=== PATIENT | female | born 1940 | race Caucasian/White ===

== ENCOUNTER 2017-11-23 04:53 | Emergency (ER) | payer MEDICARE, OTHER ==
--- NOTE | 2017-11-23 05:30 | EDM.PDOC ---
ED HPI GENERAL MEDICAL PROBLEM - General Chief Complaint: General Stated Complaint: hypotension,fall Time Seen by Provider: 11/23/17 05:10 Source of Information: Reports: Patient, EMS Notes Reviewed, Family, RN, RN Notes Reviewed History Limitations: Reports: No Limitations - History of Present Illness INITIAL COMMENTS - FREE TEXT/NARRATIVE: Patient is brought to emergency room at [facility] via ambulance after she was found by her laying on the floor next to the bed. The patient states when she got up to go to the bathroom she wanted to sit on the edge of the bed. The patient states that as she was sitting down, she misjudged the edge of bed and slid down to the floor. The patient denies any head injury or trauma. The patient denies any chest pain. The patient denies any shortness of breath or cough. The patient denies any abdominal pain. The patient denies any nausea vomiting or diarrhea. The patient denies any dizziness. The patient states she remembers the entire incident. The patient is not sure why she slipped to the floor. The patient denies any leg weakness. Upon ambulance arrival, the patient apparently had a blood pressure in the 60s. The ambulance crew did not do any intervention for the blood pressure in the 60s. They felt that the patient was asymptomatic and they were unable to get an IV started. The patient denies any blood in stool. The patient denies any UTI symptoms. The patient states "I think I'm drinking enough water." The patient does not have any past medical history. The patient denies taking any prescription medications on a daily basis. The patient has not been seen by her primary care provider in many years. - Related Data Allergies Allergy/AdvReac Type Severity Reaction Status Date / Time No Known Allergies Allergy Verified 11/23/17 05:26 Home Meds: Home Meds . [No Known Home Meds] 11/23/17 [History] Past Medical History - Past Health History Medical/Surgical History: Denies Medical/Surgical History Social & Family History - Family History Family Medical History: Noncontributory - Tobacco Use Smoking Status *Q: Current Every Day Smoker Tobacco Use Within Last Twelve Months: Cigarettes - Alcohol Use Alcohol Use History: No Alcohol Use in Last Twelve Months: No - Living Situation & Occupation Living situation: Reports: , with Spouse Occupation: Retired ED ROS GENERAL - Review of Systems Review Of Systems: ROS reveals no pertinent complaints other than HPI. ED EXAM, GENERAL - Physical Exam Exam: See Below Exam Limited By: No Limitations General Appearance: Alert, No Apparent Distress Eye Exam: Bilateral Eye: Normal Inspection, PERRL Head: Atraumatic, Normocephalic Neck: Supple Respiratory/Chest: No Respiratory Distress, Lungs Clear, Normal Breath Sounds Cardiovascular: Normal Peripheral Pulses, Regular Rate, Rhythm Peripheral Pulses: 1+: Radial (L), Radial (R) GI/Abdominal: Normal Bowel Sounds, Soft, Non-Tender Neurological: Alert, Oriented Skin Exam: Warm, Dry, Intact, Normal Color, No Rash EKG INTERPRETATION EKG Date: 11/23/17 Time: 06:11 Rhythm: NSR Rate (Beats/Min): 80 [place]: Normal P-Wave: Present QRS: Normal ST-T: Normal QT: Normal CO/PQ Interval: 0.14 Comparison: NA - No Prior EKG EKG Interpretation Comments: Sinus Rhythm with occasional SV premature complexes Nonspecific ST & T-wave abnormality Course - Vital Signs Last Recorded V/S: Last Vital Signs Temp 35.7 C 11/23/17 05:22 Pulse 96 11/23/17 07:44 Resp 18 11/23/17 07:44 BP 105/75 11/23/17 08:28 Pulse Ox 96 11/23/17 08:28 Orthostatic Blood Pressure [ 76/51 Standing] Orthostatic Blood Pressure [ 90/54 Supine] - Orders/Labs/Meds Orders: Active Orders 24 hr Category Date Time Status EKG 12 Lead [EKG Documentation Completion] [RC] STAT Care 11/23/17 05:43 Active Orthostatic Vital Signs [RC] ASDIRECTED Care 11/23/17 06:01 Active Oxygen Therapy, ED [RC] ASDIRECTED Care 11/23/17 07:40 Active Chest 1V Frontal [CR] Stat Exams 11/23/17 06:14 Taken Head wo Cont [CT] Stat Exams 11/23/17 07:18 Taken CULTURE BLOOD [BC] Stat Lab 11/23/17 07:06 Results CULTURE BLOOD [BC] Stat Lab 11/23/17 07:12 Results UA W/MICROSCOPIC [URIN] Stat Lab 11/23/17 05:42 Ordered Piperacillin/Tazobactam [Zosyn] 4.5 gm Med 11/23/17 08:37 Active Sodium Chloride 0.9% [Normal Saline] 100 ml IV ONETIME Sodium Chloride 0.9% [Saline Flush] Med 11/23/17 05:37 Active 10 ml FLUSH ASDIRECTED PRN Blood Culture x2 Reflex Set [OM.PC] Stat Oth 11/23/17 06:13 Ordered Peripheral IV Insertion Adult [OM.PC] Routine Oth 11/23/17 05:37 Ordered Medication Orders Piperacillin Sod/Tazobactam (Sod 4.5 gm/ Sodium Chloride) 100 mls @ 200 mls/hr IV ONETIME ONE Stop: 11/23/17 09:06 Sodium Chloride (Saline Flush) 10 ml FLUSH ASDIRECTED PRN PRN Reason: Keep Vein Open Labs: Laboratory Tests 11/23/17 11/23/17 11/23/17 Range/Units 05:11 05:11 05:11 WBC 19.1 H (4.0-10.0) x10^3/uL RBC 3.90 L (4.00-5.50) x10^6/uL Hgb 11.6 L (12.0-16.0) g/dL Hct 37.8 (33.0-47.0) % MCV 96.9 H (78.0-93.0) fL MCH 29.7 (26.0-32.0) pg MCHC 30.7 L (32.0-36.0) g/dL RDW Coeff of Dex 15.3 H (10.0-15.0) % Plt Count 224 (130-400) x10^3/uL Add Manual Diff Yes Neutrophils % (Manual) 78 (50-80) % Band Neutrophils % 7 H (0-6) % Lymphocytes % (Manual) 9 L (25-50) % Monocytes % (Manual) 4 (2-11) % Eosinophils % (Manual) 1 (0-4) % Basophils % (Manual) 1 (0-1) % Vacuolated Monocytes Rare Toxic Granulation 1+ slight H Platelet Estimate Adequate Anisocytosis 1+ slight H Macrocytosis 1+ slight H Ovalocytes Rare Sodium 142 (136-145) mmol/L Potassium 3.9 (3.5-5.1) mmol/L Chloride 105 (98-107) mmol/L Carbon Dioxide 24 (21-32) mmol/L BUN 31 H (7-18) mg/dL Creatinine 1.9 H (0.55-1.02) mg/dL Est Cr Clr Drug Dosing TNP Estimated GFR (MDRD) 26 Glucose 253 H (74-106) mg/dL Lactic Acid (0.4-2.0) mmol/L Calcium 9.1 (8.5-10.1) mg/dL Corrected Calcium 9.98 (8.5-10.1) mg/dL Total Bilirubin 0.5 (0.2-1.0) mg/dL AST 70 H (15-37) U/L ALT 45 (14-59) U/L Alkaline Phosphatase 83 (46-116) U/L Creatine Kinase 244 H* (26-192) U/L Troponin I 1.434 H* (<=0.056) ng/mL C-Reactive Protein 3.0 H (<=0.9) mg/dL Total Protein 6.8 (6.4-8.2) g/dL Albumin 2.9 L (3.4-5.0) g/dL Globulin 3.9 Albumin/Globulin Ratio 0.74 /18 Range/Units 05:11 WBC (4.0-10.0) x10^3/uL RBC (4.00-5.50) x10^6/uL Hgb (12.0-16.0) g/dL Hct (33.0-47.0) % MCV (78.0-93.0) fL MCH (26.0-32.0) pg MCHC (32.0-36.0) g/dL RDW Coeff of Dex (10.0-15.0) % Plt Count (130-400) x10^3/uL Add Manual Diff Neutrophils % (Manual) (50-80) % Band Neutrophils % (0-6) % Lymphocytes % (Manual) (25-50) % Monocytes % (Manual) (2-11) % Eosinophils % (Manual) (0-4) % Basophils % (Manual) (0-1) % Vacuolated Monocytes Toxic Granulation Platelet Estimate Anisocytosis Macrocytosis Ovalocytes Sodium (136-145) mmol/L Potassium (3.5-5.1) mmol/L Chloride (98-107) mmol/L Carbon Dioxide (21-32) mmol/L BUN (7-18) mg/dL Creatinine (0.55-1.02) mg/dL Est Cr Clr Drug Dosing Estimated GFR (MDRD) Glucose (74-106) mg/dL Lactic Acid 7.8 H* (0.4-2.0) mmol/L Calcium (8.5-10.1) mg/dL Corrected Calcium (8.5-10.1) mg/dL Total Bilirubin (0.2-1.0) mg/dL AST (15-37) U/L ALT (14-59) U/L Alkaline Phosphatase (46-116) U/L Creatine Kinase (26-192) U/L Troponin I (<=0.056) ng/mL C-Reactive Protein (<=0.9) mg/dL Total Protein (6.4-8.2) g/dL Albumin (3.4-5.0) g/dL Globulin Albumin/Globulin Ratio Meds: Medications Generic Name Dose Route Start Last Admin Trade Name Freq PRN Reason Stop Dose Admin Piperacillin Sod/Tazobactam 100 mls @ 200 mls/hr 11/23/17 08:37 Sod 4.5 gm/ Sodium Chloride IV 11/23/17 09:06 ONETIME ONE Sodium Chloride 10 ml 11/23/17 05:37 Saline Flush FLUSH ASDIRECTED PRN Keep Vein Open Discontinued Medications Generic Name Dose Route Start Last Admin Trade Name Freq PRN Reason Stop Dose Admin Sodium Chloride 1,000 mls @ 999 mls/hr 11/23/17 05:39 11/23/17 05:50 Normal Saline IV 11/23/17 06:39 999 mls/hr ONETIME ONE Administration - Radiology Interpretation Free Text/Narrative:: CXR: Negative CXR for acute cardiopulmonary process - see scanned report in EMR Departure - Departure Time of Disposition: 08:44 Disposition: DC/Tfer to [facility] 02 Condition: Fair Clinical Impression: Sepsis associated hypotension Hypotension Qualifiers: Hypotension type: unspecified hypotension type Qualified Code(s): I95.9 - Hypotension, unspecified - Discharge Information Forms: Interfacility Transfer [facility] ED Communication - ED Communication Date/Time Date: 11/23/17 Time Called: 08:20 - Discussed Case With (1) Discussed Case With (1): Admitting Provider (Dr. James, Hospitalist, Dr. Stinson, Director Drug. Report given. Patient accepted in transfer. Patient will be sent via ALS ground.) - Conversation Summary Admitting Provider Agreed to Patient's Admission: Yes Patient Aware of Amendments fo Care Plan: Yes - Problem List Review Problem List Initiated/Reviewed/Updated: Yes - My Orders Last 24 Hours: My Active Orders 11/23/17 05:37 Sodium Chloride 0.9% [Saline Flush] 10 ml FLUSH ASDIRECTED PRN Peripheral IV Insertion Adult [OM.PC] Routine 11/23/17 05:42 UA W/MICROSCOPIC [URIN] Stat 11/23/17 05:43 EKG 12 Lead [EKG Documentation Completion] [RC] STAT 11/23/17 06:01 Orthostatic Vital Signs [RC] ASDIRECTED 11/23/17 06:13 Blood Culture x2 Reflex Set [OM.PC] Stat 11/23/17 06:14 Chest 1V Frontal [CR] Stat 11/23/17 07:06 CULTURE BLOOD [BC] Stat 11/23/17 07:12 CULTURE BLOOD [BC] Stat 11/23/17 07:18 Head wo Cont [CT] Stat 11/23/17 07:40 Oxygen Therapy, ED [RC] ASDIRECTED 11/23/17 08:37 Piperacillin/Tazobactam [Zosyn] 4.5 gm Sodium Chloride 0.9% [Normal Saline] 100 ml IV ONETIME - Assessment/Plan Last 24 Hours: My Active Orders 11/23/17 05:37 Sodium Chloride 0.9% [Saline Flush] 10 ml FLUSH ASDIRECTED PRN Peripheral IV Insertion Adult [OM.PC] Routine 11/23/17 05:42 UA W/MICROSCOPIC [URIN] Stat 11/23/17 05:43 EKG 12 Lead [EKG Documentation Completion] [RC] STAT 11/23/17 06:01 Orthostatic Vital Signs [RC] ASDIRECTED 11/23/17 06:13 Blood Culture x2 Reflex Set [OM.PC] Stat 11/23/17 06:14 Chest 1V Frontal [CR] Stat 11/23/17 07:06 CULTURE BLOOD [BC] Stat 11/23/17 07:12 CULTURE BLOOD [BC] Stat 11/23/17 07:18 Head wo Cont [CT] Stat 11/23/17 07:40 Oxygen Therapy, ED [RC] ASDIRECTED 11/23/17 08:37 Piperacillin/Tazobactam [Zosyn] 4.5 gm Sodium Chloride 0.9% [Normal Saline] 100 ml IV ONETIME Assessment:: Hypotension Sepsis Plan: Case discussed with Dr. James, Hospitalist, Dr. Stinson, Director Drug. Report given. Patient accepted in transfer. Patient will be sent ALS ground. ID of Sepsis criteria clinically recognized outside of [facility] parameters. Awaited to start abx treatment until able to speak with Director Drug as source of sepsis is not identified and atypical presentation of patient.
[2017-11-23] MEDS ORDERED: Sodium Chloride 0.9% 10 ML Syringe FLUSH PRN (05:37)
[2017-11-23] MEDS ORDERED: Sodium Chloride 0.9% 1,000 ML IV ONE (05:39)
[2017-11-23 06:11] LABS: CHLORIDE,CL 105 mmol/L (98-107); SODIUM,NA 142 mmol/L (136-145)
[2017-11-23] MEDS ORDERED: Piperacillin/Tazobactam 4.5 GM in Sodium Chloride 0.9% 100 ML IV ONE (08:37)
[2017-11-23] MEDS ORDERED: Sodium Chloride 0.9% 1,000 ML IV SCH (09:15)
[2017-11-23] MEDS ORDERED: Aspirin 81 MG Tab.Chew PO ONE (09:23)
[2017-11-23] MEDS ORDERED: Heparin Sodium 5,000 Units/ML Vial IVPUSH ONE (09:28)
[2017-11-23] MEDS: Heparin Sodium/0.45% NaCl 25,000 UNITS/500 ML BAG IV SCH (10:13)
== END 2017-11-23 10:45 | disposition short-term general hospital (02) ==
LOC: VM.ED 04:53
DX: A41.9 Sepsis, unspecified organism (principal); I95.9 Hypotension, unspecified; F17.210 Nicotine dependence, cigarettes, uncomplicated
CPT/HCPCS: 36415; 70450; 71045; 80053; 82550; 83605; 84484; 85025; 86140; 87040; 93005; 93010; 96361; 96365; 96367; 99285; 99285-GF; A9270-GY; J1644; J2543; J7030; J7050